=== PATIENT | male | born 1965 | race Caucasian/White ===

== ENCOUNTER 2017-09-29 18:19 | Emergency (ER) | payer OTHER, BC ==
[2017-09-29] MEDS ORDERED: Ondansetron HCl/PF 4 MG/2 ML Vial ONE (18:44)
[2017-09-29] MEDS ORDERED: Ketorolac Tromethamine 30 MG/ML VIAL ONE (18:44)
[2017-09-29] MEDS ORDERED: Pantoprazole 40 MG VIAL ONE (18:51)
[2017-09-29 19:10] LABS: ALT (SGPT) 26 U/L (8-55); AST (SGOT) 17 U/L (5-34); Alkaline Phosphatase 70 U/L (40-150); Anion Gap 20 mmol/L (10-20); BUN (Urea Nitrogen) 17 mg/dL (8.4-25.7); Bilirubin, Total 0.8 mg/dL (0.2-1.2); Calc. Creatinine Clearance 0 mL/min (70-130); Calcium 10.4 mg/dL (7.8-10.44); Carbon Dioxide 18 mmol/L (22-29); Chloride 104 mmol/L (98-107); Estimated GFR-MDRD 77; Globulin 2.6 g/dL (2.4-3.5); Glucose 132 mg/dL (70-105); Lipase 30 U/L (8-78); Potassium 3.2 mmol/L (3.5-5.1); Protein, Total 7.6 g/dL (6.0-8.3); Sodium 139 mmol/L (136-145)
[2017-09-29 19:18] LABS: Hemoglobin 16.1 g/dL (14.0-18.0); Mean Corpuscular HGB CONC 34.2 g/dL (32.0-36.0); Mean Corpuscular Hemoglobin 29.8 pg (27.0-31.0); Mean Corpuscular Volume 87.1 fL (80.0-94.0); Mean Platelet Volume 8.4 fL (7.4-10.4); Platelet Count 294 thou/uL (130-400); RBC Distribution Width 12.5 % (11.5-14.5); White Blood Cell (WBC) Count 13.5 thou/uL (4.8-10.8)
[2017-09-29 19:19] LABS: #Basophils 0.1 thou/uL (0.0-0.2); #Eosinphils 0.1 thou/uL (0.0-0.7); #Monocytes 0.8 thou/uL (0.11-0.59); #Neutrophils 10.7 thou/uL (1.40-6.50); %Basophils 0.9 % (0.0-1.0); %Eosinophils 0.6 % (0.0-10.0); %Lymphocytes 13.3 % (21.0-51.0); %Neutrophils 79.1 % (42.0-75.0); MDiff Complete? YES; Manual Diff?? NO
[2017-09-29] MEDS ORDERED: Morphine 4 MG/ML Carpuject ONE (19:41)
--- NOTE | 2017-09-29 22:29 | CT ---
CT ABDOMEN AND PELVIS WITH CONTRAST: Date: 09-29-[address] of the abdomen and pelvis was performed for evaluation of epigastric pain. Axial slices wer e acquired followed by coronal reconstructions. FINDINGS: The lung bases are clear. The liver, spleen, pancreas, adrenal glands, kidneys and abdominal aorta we re all unremarkable in appearance. Gallbladder is slightly large measuring 9.2 cm in length. A large gallstone is seen in the neck, however, there is no inflammatory stranding around the gallbladder, no r is there any thickening of the wall. Fluid is seen in the stomach and duodenum but neither are greatly distended. I was not overly impress ed by the thickness of the gastric wall. The bowel shows no signs of inflammatory change in or around it. There is no dilatation of bowel. No free air or free fluid was seen. CT of the pelvis shows no pelvic masses, fluid collections, or inflammatory changes. IMPRESSION: Mild enlargement of the gallbladder which may or may not be significant as there is no wall thickenin g or inflammatory change around it. There is a solitary large gallstone in the neck. POS: HOME
== END 2017-09-29 20:46 | disposition home or self-care (01) ==
LOC: BURERS 18:19
DX: K80.70 Calculus of gallbladder and bile duct without cholecystitis without obstruction (principal)
CPT/HCPCS: 74177; 80053; 83690; 85025; 93005; 96361; 96374; 96375; C9113; J1885; J2270; J2405

== ENCOUNTER 2018-08-08 12:09 | Emergency (ER) | payer OTHER, BC ==
[2018-08-08] MEDS ORDERED: AMOXicillin 250 MG CAP ONE (12:39)
[2018-08-08] MEDS ORDERED: Adacel (T-DAP) 0.5 ML SYRINGE ONE (12:39)
[2018-08-08] MEDS ORDERED: Ibuprofen 800 MG TAB ONE (13:16)
== END 2018-08-08 13:20 | disposition home or self-care (01) ==
LOC: BURERS 12:09
DX: S61.051A Open bite of right thumb without damage to nail, initial encounter (principal); S61.011A Laceration without foreign body of right thumb without damage to nail, initial encounter; W54.0XXA Bitten by dog, initial encounter
CPT/HCPCS: 90471; 90715